=== PATIENT | female | born 1940 | race African-American/Black ===

== ENCOUNTER 2016-06-08 19:25 | Emergency (ER) | payer MEDICARE ==
[~2016-06-08 19:25] MED LIST: ALLO100T PO; LISI10TA2 PO; METOPROLOL PO; PRAV40TA2 PO
[2016-06-08] MEDS ORDERED: METOPROLOL TART IMMED RELEASE 25 MG TABLET PO STA (20:25)
--- NOTE | 2016-06-08 20:40 | PHYS DOC ---
Past Medical History Past Medical History: Arthritis, Hypertension, Other Additional Past Medical Histor: GOUT Past Surgical History: No Surgical History Alcohol Use: None Drug Use: None Adult General Chief Complaint Chief Complaint: HYPERTENSION HPI HPI This is a 76-year-old female who took her blood pressure today and found it to be elevated in the 200 systolic range and wanted to present for evaluation for uncontrolled blood pressure. She denies any significant symptoms with this elevated blood pressure. She denies any chest pain or shortness of breath. She denies any dizziness or lightheadedness or headache. Patient states she has been taking all her blood pressure medications as prescribed. She takes 20 mg lisinopril in the AM as well as 20 mg of hydrochlorothiazide in the AM in the 100 mg of metoprolol in the evening. The daughter at bedside is adamant that her blood pressure is elevated throughout the week and then this is not only today that the blood pressure has been uncontrolled. Patient does keep a log of her blood pressures at home but did not bring this with her she believes she runs usually in the 140s systolic. She states she does have history of arthritis and gout but denies any other major health problems. Review of Systems Review of Systems Constitutional: Denies fever or chills [] Eyes: Denies change in visual acuity, redness, or eye pain [] HENT: Denies nasal congestion or sore throat [] Respiratory: Denies cough or shortness of breath [] Cardiovascular: No additional information not addressed in HPI [] GI: Denies abdominal pain, nausea, vomiting, bloody stools or diarrhea [] : Denies dysuria or hematuria [] Musculoskeletal: Denies back pain or joint pain [] Integument: Denies rash or skin lesions [] Neurologic: Denies headache, focal weakness or sensory changes [] Endocrine: Denies polyuria or polydipsia [] Current Medications Current Medications Current Medications Medications (Trade) Dose Ordered Sig/Eliot Start Time Stop Time Status Last Admin Dose Admin Metoprolol Tartrate (Lopressor) 100 mg 1X STAT 06/08/16 20:25 06/08/16 20:27 DC 06/08/16 20:35 100 MG Allergies Allergies Allergies Coded Allergies Type Severity Reaction Last Updated Verified No Known Drug Allergies 08/14/14 No Physical Exam Physical Exam Constitutional: Well developed, well nourished, no acute distress, non-toxic appearance. [] HENT: Normocephalic, atraumatic, bilateral external ears normal, oropharynx moist, no oral exudates, nose normal. [] Eyes: PERRLA, EOMI, conjunctiva normal, no discharge. [] Neck: Normal range of motion, no tenderness, supple, no stridor. [] Cardiovascular:Heart rate regular rhythm, no murmur [] Lungs & Thorax: Bilateral breath sounds clear to auscultation [] Abdomen: Bowel sounds normal, soft, no tenderness, no masses, no pulsatile masses. [] Skin: Warm, dry, no erythema, no rash. [] Back: No tenderness, no CVA tenderness. [] Extremities: No tenderness, no cyanosis, no clubbing, ROM intact, no edema. [] Neurologic: Alert and oriented X 3, normal motor function, normal sensory function, no focal deficits noted. [] Psychologic: Affect normal, judgement normal, mood normal. [] Current Patient Data Vital Signs Vital Signs Date Time Temp Pulse Resp B/P Pulse Ox O2 Delivery O2 Flow Rate FiO2 06/08/16 21:02 53 18 184/99 96 Room Air 06/08/16 19:37 98.2 98.2 EKG EKG [] Radiology/Procedures Radiology/Procedures [] Course & Med Decision Making Course & Med Decision Making Pertinent Labs and Imaging studies reviewed. (See chart for details) This 76-year-old female was observed in the department and had multiple blood pressure rechecks. A dose of her evening 100 mg of metoprolol was also given. The pressure did trend down slightly at 184/99 upon discharge. I additionally placed a call to Dr. Henderson and spoke with the on-call physician, Dr. Springer, who stated the patient should call for a appointment in the morning to be seen and that if she could not obtain an appointment with Dr. Henderson, that Dr. Springer would agree to see the patient for evaluation of her elevated blood pressure. She has a completely benign physical exam and there is no indication at this time to do any laboratory workup. I counseled the patient that she is to be seen within the next 24 hours to have her blood pressure readdressed and to have her medications adjusted as needed. Patient is very agreeable to this plan and was discharged without incident. Dragon Disclaimer Dragon Disclaimer This electronic medical record was generated, in whole or in part, using a voice recognition dictation system. Departure Departure Impression: Primary Impression: Hypertension Disposition: 01 HOME, SELF-CARE Condition: STABLE Referrals: CONNER HENDERSON MD (PCP) Patient Instructions: Hypertension, [id number] Additional Instructions: Please follow up with your primary doctor, Dr. Henderson, in the AM as discussed to have your blood pressure rechecked. Take your medication as prescribed. Return to the ER if you develop any headache, chest pain, or shortness of breath. RYAN WESTON DO Jun 08, 2016 20:40
[2016-06-08 21:02] VITALS: BP 184/99
== END 2016-06-08 21:03 | disposition home or self-care (01) ==
LOC: ER 19:25
DX: I10 Essential (primary) hypertension (principal); M19.90 Unspecified osteoarthritis, unspecified site; M10.9 Gout, unspecified
CPT/HCPCS: 99283

== ENCOUNTER → 2018-03-01 | Outpatient (CLI) | payer MEDICARE ==
--- NOTE | 2018-03-01 15:35 | CARD ---
MR#: [id number] Date of Study: 03/01/2018 Ordering Physician: ELEONORA MARQUEZ, Referring Physician: ELEONORA MARQUEZ, Tech: Kandice Khanna APPROVED REPORT EXAM: Two-dimensional and M-mode echocardiogram with Doppler and color Doppler. Other Information Quality : AverageHR: 59bpm INDICATION Hypertension/HCVD RISK FACTORS Hypertension Hyperlipidemia 2D DIMENSIONS RVDd2.3 (2.9-3.5cm)Left Atrium(2D)3.7 (1.6-4.0cm) IVSd0.7 (0.7-1.1cm)Aortic Root(2D)3.0 (2.0-3.7cm) LVDd5.2 (3.9-5.9cm)LVOT Diameter1.9 (1.8-2.4cm) PWd1.0 (0.7-1.1cm)LVDs2.9 (2.5-4.0cm) FS (%) 43.8 %SV94.7 ml LVEF(%)74.7 (>50%) Aortic Valve AoV Peak Hugo.172.6cm/sAoV VTI37.8cm AO Peak GR.11.9mmHgLVOT Peak Hugo.156.1cm/s LVOT VTI 34.06cmAO Mean GR.6mmHg DENNIS (VMAX)2.28wb9CAF (VTI)2.65cm2 Mitral Valve MV E Ihnyjikn72.0cm/sMV DECEL NLCG180wk MV A Aitktjas85.3cm/sMV PUQ05me E/A Ratio1.2MVA (PHT)4.16cm2 TDI E/Lateral E'8.0E/Medial E'8.0 Pulmonary Valve PV Peak Hxqzoppo889.1cm/sPV Peak Grad.6mmHg Tricuspid Valve TR P. Dafnepyt072ac/sTR Peak Gr.24mmHg Pulmonary Vein S1 Rxnnkorx29.2cm/sD2 Iaxrrrub18.0cm/s PVa fepsuxib671ryal LEFT VENTRICLE The left ventricle is normal size. There is normal left ventricular wall thickness. The left ventricu lar systolic function is normal. The Ejection Fraction is 60-65%. There is normal LV segmental wall m otion. Transmitral Doppler flow pattern is normal for age. RIGHT VENTRICLE The right ventricle is normal size. There is normal right ventricular wall thickness. The right ventr icular systolic function is normal. ATRIA The left atrium size is normal. The right atrium size is normal. The interatrial septum is intact wit h no evidence for an atrial septal defect or patent foramen ovale as noted on 2-D or Doppler imaging. AORTIC VALVE The aortic valve is thickened but opens well. Doppler and Color Flow revealed trace aortic regurgitat ion. There is no significant aortic valvular stenosis. MITRAL VALVE Mitral annular calcification is mild. There is no mitral valve stenosis. Doppler and Color-flow revea led trace mitral regurgitation. TRICUSPID VALVE The tricuspid valve is not well visualized. Doppler and Color Flow revealed trace tricuspid regurgita tion. There is no tricuspid valve stenosis. PULMONIC VALVE The pulmonic valve is not well visualized. Doppler and Color Flow revealed no pulmonic valvular regur gitation. GREAT VESSELS The aortic root is normal in size. Normal pulmonary venous flow (Doppler). The IVC is normal in size and collapses >50% with inspiration. PERICARDIAL EFFUSION There is no evidence of significant pericardial effusion. Critical Notification Critical Value: No <Conclusion> The left ventricular systolic function is normal. The Ejection Fraction is 60-65%. There is normal LV segmental wall motion. Trace mitral regurgitation. Trace tricuspid regurgitation. There is no evidence of significant pericardial effusion. Signed by : Gilson Tavarez, Electronically Approved : 03/01/2018 15:34:08
== END | disposition home or self-care (01) ==
LOC: ECHO 13:40
PROVIDERS: ATTEND Internal Medicine Cardiovascular Disease
DX: I34.8 Other nonrheumatic mitral valve disorders (principal); I10 Essential (primary) hypertension
CPT/HCPCS: 93306

== ENCOUNTER → 2019-12-11 | Outpatient (CLI) | payer MEDICARE ==
--- NOTE | 2019-12-11 17:21 | CARD ---
MR#: [id number] Date of Study: 12/11/2019 Ordering Physician: ELEONORA MARQUEZ, Referring Physician: ELEONORA MARQUEZ, Tech: Kandice Khanna APPROVED REPORT EXAM: Two-dimensional and M-mode echocardiogram with Doppler and color Doppler. Other Information Quality : AverageHR: 71bpm INDICATION Atrial Fibrillation RISK FACTORS Hypertension Hyperlipidemia 2D DIMENSIONS RVDd2.8 (2.9-3.5cm)Left Atrium(2D)3.2 (1.6-4.0cm) IVSd1.0 (0.7-1.1cm)Aortic Root(2D)3.0 (2.0-3.7cm) LVDd4.2 (3.9-5.9cm)LVOT Diameter1.9 (1.8-2.4cm) PWd1.0 (0.7-1.1cm)LVDs2.3 (2.5-4.0cm) FS (%) 45.1 %SV58.9 ml Aortic Valve AoV Peak Hugo.158.4cm/sAoV VTI31.4cm AO Peak GR.10.0mmHgLVOT Peak Hugo.131.7cm/s LVOT VTI 28.78cmAO Mean GR.5mmHg DENNIS (VMAX)1.58qa6LYZ (VTI)2.70cm2 Mitral Valve MV E Joftpwak01.1cm/sMV DECEL KDUO827pu MV A Aewbclwi87.3cm/sMV E Mean Gr.1mmHg MV IOA34moF/A Ratio1.0 MVA (PHT)3.92cm2 TDI E/Lateral E'7.4E/Medial E'5.9 Pulmonary Valve PV Peak Oxbdlwuv312.0cm/sPV Peak Grad.5mmHg Tricuspid Valve TR P. Lgvjtidl478uo/sRAP YYYIQZGO5rdZz TR Peak Gr.35jpArGECV31ygCp Pulmonary Vein S1 Ajmqsrkr14.2cm/sD2 Jsdhrgjn90.6cm/s PVa fzrqapfb338gcfu LEFT VENTRICLE The left ventricle is normal size. There is normal left ventricular wall thickness. The left ventricu lar systolic function is normal and the ejection fraction is within normal range. The Ejection Fracti on is 60-65%. Wall motion consistent with conduction abnormality. Transmitral Doppler flow pattern is Grade II-pseudonormal filling dynamics. RIGHT VENTRICLE The right ventricle is normal size. There is normal right ventricular wall thickness. The right ventr icular systolic function is normal. ATRIA The left atrium size is normal. The right atrium size is normal. The interatrial septum is intact wit h no evidence for an atrial septal defect or patent foramen ovale as noted on 2-D or Doppler imaging. AORTIC VALVE The aortic valve is thickened but opens well. Doppler and Color Flow revealed no significant aortic r egurgitation. Calculated aortic valve area is 1.89 cm2 with maximum pressure gradient of 14 mmHg and mean pressure gradient of 6 mmHg. There is no significant aortic valvular stenosis. MITRAL VALVE The mitral valve is normal in structure and function. There is no evidence of mitral valve prolapse. There is no mitral valve stenosis. Doppler and Color-flow revealed trace mitral regurgitation. TRICUSPID VALVE The tricuspid valve is normal in structure and function. Doppler and Color Flow revealed trace tricus pid regurgitation with an estimated PAP of 36 mmHg. There is no tricuspid valve stenosis. PULMONIC VALVE The pulmonic valve is not well visualized. Doppler and Color Flow revealed trace pulmonic valvular re gurgitation. GREAT VESSELS The aortic root is normal in size. The IVC is normal in size and collapses >50% with inspiration. PERICARDIAL EFFUSION There is no evidence of significant pericardial effusion. Critical Notification Critical Value: No <Conclusion> The left ventricle is normal size. The left ventricular systolic function is normal and the ejection fraction is within normal range. The Ejection Fraction is 60-65%. Calculated aortic valve area is 1.89 cm2 with maximum pressure gradient of 14 mmHg and mean pressure gradient of 6 mmHg. There is no significant aortic valvular stenosis. Doppler and Color Flow revealed no significant aortic regurgitation. Doppler and Color-flow revealed trace mitral regurgitation. Doppler and Color Flow revealed trace tricuspid regurgitation with an estimated PAP of 36 mmHg. Signed by : Benjy Caal MD Electronically Approved : 12/11/2019 17:21:10
== END | disposition home or self-care (01) ==
LOC: ECHO 13:48
PROVIDERS: ATTEND Internal Medicine Cardiovascular Disease
DX: I48.0 Paroxysmal atrial fibrillation (principal)
CPT/HCPCS: 93306

== ENCOUNTER → 2021-08-26 | Outpatient (CLI) | payer MEDICARE ==
[~2021-08-26] MED LIST changes: +LISI10TA16 PO; -LISI10TA2 PO
--- NOTE | 2021-08-27 17:12 | RAD ---
MR#: [id number] Date of Study: 08/26/2021 Ordering Physician: ELEONORA MARQUEZ, Referring Physician: ELEONORA MARQUEZ, Tech: Olivier Swan MBA, RDMS, RVT, RDCS, RTR APPROVED REPORT Patient Location: OUT-PATIENT Laterality:Bilateral Indications CVA/TIA: Doppler Spectral Velocity Analysis Right Left pCCA 119/18 cm/spCCA 99/24 cm/s mCCA 100/24 cm/smCCA 99/19 cm/s dCCA 91/21 cm/sdCCA 104/27 cm/s Bulb 75/18 cm/sBulb 80/19 cm/s ECA 102/ cm/sECA 128/ cm/s pICA 63/12 cm/spICA 80/14 cm/s Alecia 49/14 cm/smICA 87/17 cm/s dICA 48/16 cm/sdICA 85/16 cm/s Vert. 50/ cm/sVert. 53/ cm/s Subcl. 119/ cm/sSubcl. 108/ cm/s ICA/CCA 0.53ICA/CCA 0.88 Findings Grayscale images of extracranial carotid arteries showed mild diffuse atherosclerosis and high bifurc ation on the left side. Spectral waveform and color duplex analysis showed normal velocities suggest memo of 0 to less than 50% stenosis. The ICA to CCA ratios were normal bilaterally. The vertebral ar teries showed antegrade flow bilaterally with normal velocities. No significant carotid artery steno sis was noted. Critical Notification Critical Value: No <Conclusion> Carotid arterial duplex scan did not show any significant carotid artery stenosis. Signed by : Gilson Tavarez, Electronically Approved : 08/27/2021 17:11:57
== END ==
LOC: US 07:54
PROVIDERS: ATTEND Internal Medicine Cardiovascular Disease
DX: I65.23 Occlusion and stenosis of bilateral carotid arteries (principal); I63.9 Cerebral infarction, unspecified
CPT/HCPCS: 93880